=== PATIENT | male | born 1945 | race African-American/Black ===

== ENCOUNTER 2021-03-27 07:28 | Day surgery (SDC) | payer OTHER ==
[~2021-03-27] VITALS: Ht 185.4 cm; Wt 109.3 kg
[~2021-03-27 07:28] MED LIST: AMLO-489 PO; ATOR10TA52 PO; CLON0.1T PO; FURO20TA3 PO; METF-370 PO
[2021-03-27] MEDS ORDERED: HEPARIN IN NS 1000Units/500mL 1,500 ML ONE (09:46)
[2021-03-27] MEDS ORDERED: LIDOCAINE 2%HCL (LOCAL ANESTH.) INJ 20ML MDV ONE (09:46)
[2021-03-27] MEDS ORDERED: fentaNYL CITRATE 100 MCG/2 ML VL ONE (10:29)
[2021-03-27] MEDS ORDERED: ANGIOMAX 250 MG VIAL IV ONE (10:29)
[2021-03-27] MEDS ORDERED: MIDAZOLAM HCL 2MG/2ML 2ml VIAL (1mg/ml) ONE (10:29)
[2021-03-27] MEDS ORDERED: SODIUM CHL 0.9% 0 ML ONE (10:29)
[2021-03-27] MEDS ORDERED: IOHEXOL 350 MG/ML 100ML IJ ONE (10:46)
[2021-03-27] MEDS ORDERED: ONDANSETRON HCL 4 MG/2 ML VIAL IV PRN (11:45)
[2021-03-27] MEDS ORDERED: HYDROcodone-ACET 5/325MG TAB PO PRN (11:45)
[2021-03-27] MEDS ORDERED: ACETAMINOPHEN 500 MG TAB PO PRN (11:45)
[2021-03-27] MEDS ORDERED: SODIUM CHLOR 0.9% PF (SALINE LOCK) 10ML VIAL/SYR IV SCH (14:00)
== END 2021-03-27 14:10 | disposition home or self-care (01) ==
LOC: CATH 07:28
PROVIDERS: ATTEND Internal Medicine Cardiovascular Disease
DX: R94.39 Abnormal result of other cardiovascular function study (principal); I10 Essential (primary) hypertension; I20.9 Angina pectoris, unspecified; E11.9 Type 2 diabetes mellitus without complications; E78.00 Pure hypercholesterolemia, unspecified; Z95.5 Presence of coronary angioplasty implant and graft; Z87.891 Personal history of nicotine dependence; Z79.84 Long term (current) use of oral hypoglycemic drugs; Z20.822 Contact with and (suspected) exposure to COVID-19; Z98.890 Other specified postprocedural states; Z79.899 Other long term (current) drug therapy
CPT/HCPCS: 93458; C1751; C1760; C1894; J1644; J2250; J3010; J7030; Q9967; U0003; 99152; 99153